=== PATIENT | male | born 1990 | race African-American/Black ===

== ENCOUNTER 2024-12-23 23:58 | Emergency (ER) | payer OTHER, SELFPAY ==
[2024-12-24 00:08] VITALS: BP 124/70
[2024-12-24 02:10] VITALS: BP 113/81
[2024-12-24 02:43] LABS: Hematocrit 42.0 % (39.0-52.0); Hemoglobin 13.9 g/dL (13.0-18.0); Mean Corp Hgb Conc. 33.1 g/dL (33.0-37.0); Mean Corpuscular Volume 83.5 fL (80.0-94.0); Nucleated Red Blood Cells % 0 % (-); Platelet Count 243 10^3/uL (130-400); Red Cell Dist. Width 13.7 % (11.5-14.5)
--- NOTE | 2024-12-24 02:50 | ED.GENMED ---
History of Present Illness
General
Chief Complaint: Male Genito-Urinary Symptoms
Source: patient
Exam Limitations: none
Time Seen by Provider: 12/24/24 01:37
Nursing documentation reviewed up to this point in time: agreed with
History of Present Illness
History of Present Illness:
34-year-old male presenting to the emergency department today with concerns of unprotected intercourse with a female partner with both vaginal and anal intercourse 2 days ago. He is concerned that his partner does have a multiple additional
partners and is concerned that he could be at risk of being exposed to STDs. The partner denies any specific STDs and feels that she is likely negative but is unwilling to get any testing on her part. He denies any current symptoms.
Review of Systems
Review of Systems
Allergies reviewed?: Yes
All Other Systems: ROS reviewed and negative except as documented in HPI and ROS
Phy Exam
Physical Exam
Physical Exam:
GENERAL: Alert , in no apparent distress
EYE: pupils equal and reactive
NECK: Supple, no significant adenopathy.
ENT: o/p clr, mmm.
CARDIAC: Regular rate and rhythm .
LUNGS: Clear breath sounds bilaterally, no acute respiratory distress, no wheezes/rales/rhonchi
ABDOMEN: Soft, without focal tenderness, no r/g, no cvat
NEUROLOGICAL: Alert and oriented, no focal neuro deficits
SKIN: Warm and dry, skin intact.
MUSCULOSKELETAL: No edema, well perfused.
PSYCH: Normal and appropriate interaction.
Course
Orders/Labs/Results
Orders:
Orders
12/24/24 02:05
Pt has had a significant HIV exposure? Routine
HIV Exposure is significant?: Yes
12/24/24 02:28
Complete Blood Count/With Diff Urgent
Comprehensive Metabolic Panel Urgent
HIV Combo Urgent
RPR [Syphilis/T. pallidum Ab Reflex] Urgent
12/24/24 02:41
Chlamydia/GC by PCR Urgent
ORI Source: Urine
Specimen Description:
Source:: URINE
Date Specimen was Collected: 12/24/24
Time Specimen was Collected: 02:37
Abnormal Lab Results
12/24/24
02:28
Chloride 108 H mmol/L
(98-107)
Glucose 101 H mg/dl
(70-99)
12/24/24 02:28
12/24/24 02:28
Vital Signs
Initial and Last Documented VS:
Initial Vital Signs
Temp Pulse Resp BP Pulse Ox
97 F 66 18 124/70 100
12/24/24 00:08 12/24/24 00:08 12/24/24 00:08 12/24/24 00:08 12/24/24 00:08
Last Documented Vital Signs
Temp Pulse Resp BP Pulse Ox
98 F 70 15 113/81 100
12/24/24 02:10 12/24/24 02:10 12/24/24 02:10 12/24/24 02:10 12/24/24 02:54
MDM/Problems Addressed
MDM/Problems Addressed:
34-year-old male presenting to the emergency department with concerns of potential STD exposure. He was initially inquiring about PEP. This was offered to him to take considering he has an unknown sexual encounter. After initial testing he then
would not like to start PAP at this time. General risk was discussed with the patient demonstrated understanding he otherwise will follow-up closely as an primary care doctor. If any symptoms present or worsen he was advised to come back to the ER.
*Pulse Oximetry
SaO2: 100
Oxygen Mode of Delivery: Room air
Patient hypoxic: no (100)
*Critical Care Note
Total Time (30-74mins, 75-104mins- exclusive of procedures): Not Applicable
ED Attending Note
-
Portions of this chart may have been created with voice recognition software.� Occasional wrong word or��sound alike� substitutions may have occurred due to the inherent limitations of voice recognition software.
Discharge Plan
Departure
Patient Disposition: Home (Routine Discharge)
Date of Disposition: 12/24/24
Time of Disposition: 02:53
Patient with high blood pressure during this ER visit?: No
Condition: Good
Covid-19: Not Applicable
Discharge Problem:
Encounter for assessment of sexually transmitted disease exposure
Instructions: Sexually transmitted infections
Referrals:
[facility] [Other]
Activity Restrictions/Additional Instructions:
You came to the emergency department today with concerns potential STD exposure. You had initial testing here. Please follow-up in the next month or so for repeated testing. Return for any worsening, new or concerning symptoms.
Interventions
Interventions:
*Risk Screen - Suicide Last Done: 12/24/24 00:08
*Neglect/Abuse Screening Last Done: 12/24/24 00:08
*Nursing Disposition Last Done: 12/24/24 03:02
ED-Male Genitourinary Assessment Last Done: 12/24/24 02:09
Discharge Date and Time
Discharge Date/Time: 12/24/24 03:02
Print Language: NEPALESE
[2024-12-24 03:13] LABS: ALT (SGPT) 13 U/L (0-50); AST (SGOT) 21 U/L (17-59); Albumin 4.5 g/dl (3.5-5.0); Alkaline Phosphatase 54 U/L (38-126); Blood Urea Nitrogen 12 mg/dl (9-20); Calcium 9.0 mg/dl (8.4-10.2); Carbon Dioxide 28 mmol/L (22-30); Chloride 108 mmol/L (98-107); Glucose 101 mg/dl (70-99); Potassium 4.2 mmol/L (3.5-5.1); Sodium 141 mmol/L (135-145); Total Protein 7.6 g/dl (6.3-8.2); eGFR > 60.00
[2024-12-24 22:02] LABS: Hepatitis B Surface Antigen Negative (Negative)
[2024-12-24 22:20] LABS: Hepatitis C Antibody Negative (Negative)
[2024-12-25 14:49] LABS: Syphilis/T. pallidum Ab Reflex Negative (Negative)
== END 2024-12-24 03:02 | disposition home or self-care (01) ==
LOC: EMR 23:58
PROVIDERS: Physician Assistant; EMERGENCY PHYSICIAN Emergency Medicine
DX: Z20.2 Contact with and (suspected) exposure to infections with a predominantly sexual mode of transmission (principal)
CPT/HCPCS: 99283; 80053; 85025; 86706; 86780; 86803; 87340; 87389; 87491; 87591

== ENCOUNTER 2025-01-27 21:08 | Emergency (ER) | payer OTHER, SELFPAY ==
[2025-01-27 21:13] VITALS: BP 112/69
[2025-01-28 00:03] LABS: Hematocrit 41.7 % (39.0-52.0); Hemoglobin 13.8 g/dL (13.0-18.0); Mean Corp Hgb Conc. 33.1 g/dL (33.0-37.0); Mean Corpuscular Volume 81.9 fL (80.0-94.0); Nucleated Red Blood Cells % 0 % (-); Platelet Count 242 10^3/uL (130-400); Red Cell Dist. Width 13.8 % (11.5-14.5)
[2025-01-28 00:23] VITALS: BP 117/70
--- NOTE | 2025-01-28 00:24 | ED.GENMED ---
History of Present Illness
General
Chief Complaint: Male Genito-Urinary Symptoms
Source: patient
Exam Limitations: none
Time Seen by Provider: 01/27/25 23:06
Nursing documentation reviewed up to this point in time: agreed with
History of Present Illness
History of Present Illness:
The patient, a 34-year-old male with no pmh presented with concerns about potential HIV infection following a high-risk sexual encounter that occurred approximately 30-37 days ago. The patient initially sought medical consultation at this facility
one or two days post-exposure, where he received a post-test with negative results for HIV. He was offered post-exposure prophylaxis (PEP) at that time but declined. The patient has not experienced any symptoms such as fever, dysuria, penile pain,
discharge, or abdominal pain, though he reports occasional bloating, which he attributes to anxiety regarding the situation. which he associates with anxiety about the situation. He expresses significant concern regarding the potential for HIV
infection due to what he describes as high-risk behavior on the part of the sexual partner who has sex with men who have sex with men. The patient requests further testing to confirm his current HIV status, stating anxieties about the reliability of
early testing results. The patient notes consistent use of condoms in sexual encounters following the initial incident for precautionary purposes.
Review of Systems
Review of Systems
All Other Systems: ROS reviewed and negative except as documented in HPI and ROS
Phy Exam
Physical Exam
Physical Exam:
General: Alert, no acute distress.
Skin: Warm, dry.
Head: Normocephalic, atraumatic.
Neck: Supple, trachea midline.
Eye Ears, nose, mouth, and throat: Oral mucosa moist.
Cardiovascular: Normal peripheral perfusion, No edema.
Respiratory: Respirations are non-labored.
Gastrointestinal: Abdomen nondistended. No abdominal tenderness to palpation.
Back: Normal range of motion, Normal alignment.
Musculoskeletal: Normal ROM, normal strength.
Neurological: Alert and oriented to person, place, time, and situation, No focal neurological deficit observed.
Psychiatric: Cooperative, appropriate mood & affect.
Course
Orders/Labs/Results
Orders:
Orders
01/27/25 23:38
Pt has had a significant HIV exposure? Routine
HIV Exposure is significant?: Yes
01/27/25 23:49
Complete Blood Count/With Diff Urgent
Comprehensive Metabolic Panel Urgent
HIV Combo Urgent
Hepatitis B Core Ab, IgM Urgent
Hepatitis B Core Ab, Total Urgent
Hepatitis B Surface Antibody Urgent
Hepatitis B Surface Antigen Urgent
Hepatitis C Antibody Urgent
RPR [Syphilis/T. pallidum Ab Reflex] Urgent
01/27/25 23:50
Chlamydia/GC by PCR Urgent
ORI Source: Urine
Specimen Description:
Source:: URINE
Date Specimen was Collected: 01/27/25
Time Specimen was Collected: 23:49
Abnormal Lab Results
01/27/25
23:49
Carbon Dioxide 31 H mmol/L
(22-30)
Glucose 100 H mg/dl
(70-99)
01/27/25 23:49
01/27/25 23:49
Vital Signs
Initial and Last Documented VS:
Initial Vital Signs
Temp Pulse Resp BP Pulse Ox
98.0 F 65 20 112/69 98
01/27/25 21:13 01/27/25 21:13 01/27/25 21:13 01/27/25 21:13 01/27/25 21:13
Last Documented Vital Signs
Temp Pulse Resp BP Pulse Ox
98.0 F 65 20 117/70 98
01/27/25 21:13 01/27/25 21:13 01/27/25 21:13 01/28/25 00:23 01/28/25 00:27
MDM/Problems Addressed
Differential Diagnosis Includes:
encounter for STD testing
MDM/Problems Addressed:
34-year-old male presents to the ER today with concerns of STD testing. He has no symptoms no burning with urination, penile discharge, penile pain, abdominal pain, fevers or chills. A sexual encounter with someone who has sex with men you have
sex with men which really concerned him. He is out of the window for HIV prophylaxis. He expresses understanding. STD testing sent off. Patient will check his portal for results and follow-up with his family doctor. Patient stable for
discharge. Discussed strict return precautions.
Reviewed case with ED attending.
Chronic conditions affecting care:
GERD
*Pulse Oximetry
SaO2: 98
Oxygen Mode of Delivery: Room air
Patient hypoxic: no
*Critical Care Note
Total Time (30-74mins, 75-104mins- exclusive of procedures): Not Applicable
Data Reviewed
Review of Other/Old Records Reveals: Records (Reviewed prior ER physician documentation from 12/24/24)
ED Attending Note
-
Portions of this chart may have been created with voice recognition software.� Occasional wrong word or��sound alike� substitutions may have occurred due to the inherent limitations of voice recognition software.
Discharge Plan
Departure
Patient Disposition: Home (Routine Discharge)
Date of Disposition: 01/28/25
Time of Disposition: 00:19
Patient with high blood pressure during this ER visit?: No
Condition: Good
Discharge Problem:
Encounter for assessment of sexually transmitted disease exposure
Instructions: Sexually transmitted infections - ED (DC)
Referrals:
UNKNOWN - PT DOES,NOT KNOW [Family Provider]
Activity Restrictions/Additional Instructions:
You came to the ER today with concerns of potential STD exposure. You will receive a call if you have abnormal results.
Please follow with your primary care provider and continue to monitor for the development of symptoms.
Interventions
Interventions:
*Risk Screen - Suicide Last Done: 01/28/25 00:24
*General Assessment Last Done: 01/27/25 21:13
*Neglect/Abuse Screening Last Done: 01/28/25 00:24
*ED- Fall Risk Assessment Last Done: 01/28/25 00:24
*ED COVID-19 Vaccine History Last Done: 01/28/25 00:24
*ED Influenza Vaccine History Last Done: 01/28/25 00:24
*Nursing Disposition Last Done: 01/28/25 00:24
ED-Male Genitourinary Assessment Last Done: 01/28/25 00:00
Discharge Date and Time
Discharge Date/Time: 01/28/25 00:25
Print Language: CROATIAN
[2025-01-28 00:39] LABS: ALT (SGPT) 13 U/L (0-50); AST (SGOT) 21 U/L (17-59); Albumin 4.7 g/dl (3.5-5.0); Alkaline Phosphatase 52 U/L (38-126); Blood Urea Nitrogen 14 mg/dl (9-20); Calcium 9.4 mg/dl (8.4-10.2); Carbon Dioxide 31 mmol/L (22-30); Chloride 102 mmol/L (98-107); Glucose 100 mg/dl (70-99); Potassium 4.9 mmol/L (3.5-5.1); Sodium 141 mmol/L (135-145); Total Protein 7.8 g/dl (6.3-8.2); eGFR > 60.00
[2025-01-28 14:45] LABS: Hepatitis B Surface Antigen Negative (Negative)
[2025-01-28 15:04] LABS: Hepatitis C Antibody Negative (Negative)
== END 2025-01-28 00:25 | disposition home or self-care (01) ==
LOC: EMR 21:08
PROVIDERS: Physician Assistant; EMERGENCY PHYSICIAN Emergency Medicine
DX: Z20.2 Contact with and (suspected) exposure to infections with a predominantly sexual mode of transmission (principal)
CPT/HCPCS: 99283; 80053; 85025; 86704; 86705; 86706; 86780; 86803; 87340; 87389; 87491; 87591